=== PATIENT | male | born 1970 | race African-American/Black ===

== ENCOUNTER 2018-04-09 13:48 | Inpatient (IN) | payer BC ==
--- NOTE | 2018-04-09 14:17 | ER Document Report ---
ED Medical Screen (RME) - General Chief Complaint: Inability to Void Stated Complaint: URINATION ISSUES Time Seen by Provider: 04/09/18 14:11 Notes: Patient says that he has not passed any urine in 4 days. Has never had this happen before. Feels as if his bladder is distended. Patient also is complaining of pain and swelling in the anal area and he thinks he has a hemorrhoid. Has not seen any bleeding. This is been going on for 4 days as well. Patient has a history of hypertension but no other medical problems. TRAVEL OUTSIDE OF THE [place] IN LAST 30 DAYS: No - Related Data Allergies/Adverse Reactions: No Known Allergies Allergy (Unverified 04/09/18 13:51) Home Medications: losartan. metoprolol. amlodipine. clonidine Past Medical History - Social History Chew tobacco use (# tins/day): No Frequency of alcohol use: None Drug Abuse: None - Past Medical History Cardiac Medical History: Reports: Hx Hypertension Renal/ Medical History: Denies: Hx Peritoneal Dialysis Physical Exam - Vital signs Vitals: Temp Pulse Resp BP Pulse Ox 98.5 F 117 H 18 99/64 L 96 04/09/18 13:55 04/09/18 13:55 04/09/18 13:55 04/09/18 13:55 04/09/18 13:55 Course - Vital Signs Vital signs: Temp Pulse Resp BP Pulse Ox 98.5 F 117 H 18 99/64 L 96 04/09/18 13:55 04/09/18 13:55 04/09/18 13:55 04/09/18 13:55 04/09/18 13:55 Doctor's Discharge - Discharge Referrals: LOCAL,NO [Primary Care Provider] - Follow up as needed
[2018-04-09 14:37] LABS: ABSOLUTE BASOPHILS # (AUTO) 0.1 10^3/uL (0.0-0.2); ABSOLUTE MONOCYTES (AUTO) 1.3 10^3/uL (0.1-1.4); BASOPHILS % (AUTO) 0.3 % (0-2); HEMATOCRIT 39.3 % (37.9-51.0); HEMOGLOBIN 13.9 g/dL (13.5-17.0); LYMPHOCYTES % (AUTO) 5.9 % (13-45); MEAN CORPUSCULAR HEMOGLOBIN 32.8 pg (27.0-33.4); MEAN CORPUSCULAR HGB CONC 35.5 g/dL (32.0-36.0); MEAN CORPUSCULAR VOLUME 92 fl (80-97); MONOCYTES % (AUTO) 7.8 % (3-13); PLATELET COUNT 211 10^3/uL (150-450); RED BLOOD COUNT 4.26 10^6/uL (4.35-5.55); RED CELL DISTRIBUTION WIDTH 13.9 % (11.5-14.0); TOTAL CELLS COUNTED % (AUTO) 100 %; WHITE BLOOD COUNT 16.3 10^3/uL (4.0-10.5)
[2018-04-09 14:51] LABS: ALANINE AMINOTRANSFERASE 26 U/L (21-72); ALBUMIN 4.3 g/dL (3.5-5.0); ALKALINE PHOSPHATASE 87 U/L (38-126); ASPARTATE AMINO TRANSFERASE 29 U/L (17-59); BILIRUBIN,DIRECT 0.5 mg/dL (0.0-0.4); BILIRUBIN,TOTAL 0.9 mg/dL (0.2-1.3); BLOOD UREA NITROGEN 64 mg/dL (7-20); CALCIUM 9.7 mg/dL (8.4-10.2); CHLORIDE 88 mmol/L (98-107); GLUCOSE 117 mg/dL (75-110); POTASSIUM 3.5 mmol/L (3.6-5.0); TOTAL PROTEIN 7.8 g/dL (6.3-8.2)
[2018-04-09 14:56] LABS: CARBON DIOXIDE 21 mmol/L (22-30)
[2018-04-09 14:57] LABS: ANION GAP 23 (5-19)
[2018-04-09 15:21] LABS: APPEARANCE,URINE SLIGHTLY-CLOUDY; BILIRUBIN,URINE NEGATIVE (NEGATIVE); GLUCOSE, URINE NEGATIVE (NEGATIVE); KETONES,URINE NEGATIVE (NEGATIVE); LEUKOCYTE ESTERASE,URINE NEGATIVE (NEGATIVE); NITRITE,URINE NEGATIVE (NEGATIVE); PROTEIN,URINE 30 mg/dL (NEGATIVE); URINE SPECIFIC GRAVITY 1.021; UROBILINOGEN,URINE NEGATIVE mg/dL (<2.0)
[2018-04-09 15:23] LABS: COLOR,URINE YELLOW
[2018-04-09] MEDS ORDERED: NORMAL SALINE 1000 ML 1,000 ML IV ONE ×2 (15:37→15:38)
--- NOTE | 2018-04-09 15:51 | ER Document Report ---
ED General - General Chief Complaint: Inability to Void Stated Complaint: URINATION ISSUES Time Seen by Provider: 04/09/18 14:11 Mode of Arrival: Ambulatory Information source: Patient, [facility] Records Notes: 47-year-old male with hypertension presents with complaint of inability to urinate, lower abdominal pain that started 4 days prior to arrival. Patient denies any new medications, drug use, prior similar symptoms. He denies fever, chills, nausea, vomiting, chest pain, shortness of breath. He does complain of rectal pain which she describes as pressure and his abdominal pain is described as fullness. Patient's last bowel movement was also 4 days prior to arrival. TRAVEL OUTSIDE OF THE [place] IN LAST 30 DAYS: No - HPI Onset: Other Onset/Duration: Gradual, Persistent, Worse Quality of pain: Cramping, Pressure Severity: Mild Associated symptoms: denies: Chest pain, Diarrhea, Fever, Nausea, Vomiting, Shortness of breath Exacerbated by: Denies Relieved by: Denies Similar symptoms previously: No Recently seen / treated by doctor: No - Related Data Allergies/Adverse Reactions: No Known Allergies Allergy (Verified 04/09/18 15:14) Home Medications: losartan. metoprolol. amlodipine. clonidine Past Medical History - General Information source: Patient - Social History Smoking Status: Never Smoker Chew tobacco use (# tins/day): No Frequency of alcohol use: None Drug Abuse: None Lives with: Family Family History: Reviewed & Not Pertinent Patient has suicidal ideation: No Patient has homicidal ideation: No - Past Medical History Cardiac Medical History: Reports: Hx Hypertension Renal/ Medical History: Denies: Hx Peritoneal Dialysis Review of Systems - Review of Systems Notes: REVIEW OF SYSTEMS: CONSTITUTIONAL : Denies fever, chills, or sweats. Denies recent illness. Denies weight loss, recent hospitalizations. EENT: Denies visual changes, eye pain. Denies sore throat, oral lesions, difficulty swallowing. CARDIOVASCULAR: Denies chest pain. Denies palpitations. Denies lower extremity edema. RESPIRATORY: Denies cough. Denies shortness of breath, wheezing. GASTROINTESTINAL: Denies abdominal distention. Denies nausea, vomiting, or diarrhea. Denies blood in vomitus, stools, or per rectum. Denies black, tarry stools. GENITOURINARY: Denies painful urination, frequency, blood in urine, testicular pain or penile discharge. MUSCULOSKELETAL: Denies back or neck pain or stiffness. Denies joint pain or swelling. SKIN: Denies rash, lesions or sores. HEMATOLOGIC : Denies easy bruising or bleeding. LYMPHATIC: Denies swollen glands. NEUROLOGICAL: Denies confusion or altered mental status. Denies loss of consciousness. Denies dizziness or lightheadedness. Denies headache. Denies weakness or paralysis. Denies problems difficulty with ambulation, slurred speech. Denies sensory loss, numbness, or tingling. Denies seizures. PSYCHIATRIC: Denies anxiety or stress. Denies depression, suicidal ideation, or Physical Exam - Vital signs Vitals: Temp Pulse Resp BP Pulse Ox 98.5 F 117 H 18 99/64 L 96 04/09/18 13:55 04/09/18 13:55 04/09/18 13:55 04/09/18 13:55 04/09/18 13:55 - Notes Notes: PHYSICAL EXAMINATION: GENERAL: Well-appearing, well-nourished and in no acute distress. HEAD: Atraumatic, normocephalic. EYES: Pupils equal round and reactive to light, extraocular movements intact, sclera anicteric, conjunctiva are normal. ENT: Nares patent, oropharynx clear without exudates. Moist mucous membranes. NECK: Normal range of motion, supple without lymphadenopathy LUNGS: Breath sounds clear to auscultation bilaterally and equal. No wheezes rales or rhonchi. HEART: Regular rate and rhythm without murmurs ABDOMEN: Mild tenderness with palpation to the lower abdomen and right lower quadrant as well as the left lower quadrant. no guarding, no rebound. No masses appreciated. Rectal: No gross blood, no masses appreciated. Prostate firm. Musculoskeletal: Normal range of motion, no pitting or edema. No cyanosis. NEUROLOGICAL: Cranial nerves grossly intact. Normal speech, normal gait. Normal sensory, motor exams PSYCH: Normal mood, normal affect. SKIN: Warm, Dry, normal turgor, no rashes or lesions noted. Course - Re-evaluation Re-evalutation: Laboratory 04/09/18 04/09/18 04/09/18 14:25 14:25 14:25 WBC 16.3 H RBC 4.26 L Hgb 13.9 Hct 39.3 MCV 92 MCH 32.8 MCHC 35.5 RDW 13.9 Plt Count 211 Seg Neutrophils % 86.0 H Lymphocytes % 5.9 L Monocytes % 7.8 Eosinophils % 0.0 Basophils % 0.3 Absolute Neutrophils 14.0 H Absolute Lymphocytes 1.0 Absolute Monocytes 1.3 Absolute Eosinophils 0.0 Absolute Basophils 0.1 PT INR APTT Sodium 132.0 L Potassium 3.5 L Chloride 88 L Carbon Dioxide 21 L Anion Gap 23 H BUN 64 H Creatinine 9.93 H Est GFR ( Amer) 7 L Est GFR (Non-Af Amer) 6 L Glucose 117 H Calcium 9.7 Total Bilirubin 0.9 Direct Bilirubin 0.5 H Neonat Total Bilirubin Not Reportable Neonat Direct Bilirubin Not Reportable Neonat Indirect Bili Not Reportable AST 29 ALT 26 Alkaline Phosphatase 87 Creatine Kinase 180 H Total Protein 7.8 Albumin 4.3 Urine Color Urine Appearance Urine pH Ur Specific [place] Urine Protein Urine Glucose (UA) Urine Ketones Urine Blood Urine Nitrite Urine Bilirubin Urine Urobilinogen Ur Leukocyte Esterase Urine WBC (Auto) Urine RBC (Auto) U Hyaline Cast (Auto) Urine Bacteria (Auto) Squamous Epi Cells Auto Urine Mucus (Auto) Urine Ascorbic Acid Salicylates < 1.0 L Urine Opiates Screen Urine Methadone Screen Acetaminophen < 10 L Ur Barbiturates Screen Ur Phencyclidine Scrn Ur Amphetamines Screen U Benzodiazepines Scrn Urine Cocaine Screen U Marijuana (THC) Screen Serum Alcohol < 10 04/09/18 04/09/18 04/09/18 14:25 15:09 15:09 WBC RBC Hgb Hct MCV MCH MCHC RDW Plt Count Seg Neutrophils % Lymphocytes % Monocytes % Eosinophils % Basophils % Absolute Neutrophils Absolute Lymphocytes Absolute Monocytes Absolute Eosinophils Absolute Basophils PT 14.7 INR 1.09 APTT 40.4 H Sodium Potassium Chloride Carbon Dioxide Anion Gap BUN Creatinine Est GFR ( Amer) Est GFR (Non-Af Amer) Glucose Calcium Total Bilirubin Direct Bilirubin Neonat Total Bilirubin Neonat Direct Bilirubin Neonat Indirect Bili AST ALT Alkaline Phosphatase Creatine Kinase Total Protein Albumin Urine Color YELLOW Urine Appearance SLIGHTLY-CLOUDY Urine pH 5.0 Ur Specific [place] 1.021 Urine Protein 30 H Urine Glucose (UA) NEGATIVE Urine Ketones NEGATIVE Urine Blood NEGATIVE Urine Nitrite NEGATIVE Urine Bilirubin NEGATIVE Urine Urobilinogen NEGATIVE Ur Leukocyte Esterase NEGATIVE Urine WBC (Auto) 3 Urine RBC (Auto) 0 U Hyaline Cast (Auto) 1 Urine Bacteria (Auto) TRACE Squamous Epi Cells Auto <1 Urine Mucus (Auto) OCC Urine Ascorbic Acid NEGATIVE Salicylates Urine Opiates Screen NEGATIVE Urine Methadone Screen NEGATIVE Acetaminophen Ur Barbiturates Screen NEGATIVE Ur Phencyclidine Scrn NEGATIVE Ur Amphetamines Screen NEGATIVE U Benzodiazepines Scrn NEGATIVE Urine Cocaine Screen NEGATIVE U Marijuana (THC) Screen NEGATIVE Serum Alcohol Abdomen/Pelvis CT 04/09/18 15:48 IMPRESSION: Right lower quadrant/pelvic abscess, either from perforated appendix or diverticulitis. Surgical consultation is recommended. Renal Ultrasound 04/09/18 15:49 IMPRESSION: 1. Normal kidneys. 2. Inflammatory mass in the pelvis as initially seen on CT. Temp Pulse Resp BP Pulse Ox 98.7 F 99 16 97/54 L 96 04/09/18 23:20 04/09/18 23:20 04/09/18 23:20 04/09/18 23:20 04/09/18 23:20 47-year-old male presents with lower abdominal pain, urinary retention. Vital signs stable upon arrival. Patient does not appear toxic or dehydrated. He is in no acute distress. Abdominal exam is significant for mild lower tenderness but without evidence of peritonitis. Rectal exam was performed to assess prostate size and this was firm but not markedly enlarged. White was placed and 500 cc of urinary output was recorded. Patient's urine is bloody, dark in color. CBC does show a leukocytosis. CMP shows acute renal failure with a creatinine of 9 which is new for the patient. 04/09/18 16:20 Got a call from the radiologist who suspects a ruptured appendix with an associated abscess on patient's Noncon CAT scan of the abdomen and pelvis. Spoke to Dr. Pittman who will evaluate the patient. Awaiting callback from nephrology Dr. Davenport for patient's acute renal failure. 04/09/18 16:[address] Davenport regarding the patient's new onset renal failure and need for antibiotics. He recommends Zosyn with a loading dose of 3.375. Dr. Davenport does agree to consult on the patient in case he does require emergent dialysis tomorrow. 04/10/18 02:33 Patient was evaluated by surgery. They will continue to monitor the patient at this point he does not feel that immediate surgery is safe for the patient. I did speak to the hospitalist who has agreed to accept the patient. 04/10/18 02:37 - Vital Signs Vital signs: Temp Pulse Resp BP Pulse Ox 98.7 F 99 16 97/54 L 96 04/09/18 23:20 04/09/18 23:20 04/09/18 23:20 04/09/18 23:20 04/09/18 23:20 - Laboratory Result Diagrams: 04/09/18 14:25 04/09/18 17:29 Laboratory results interpreted by me: 04/09/18 04/09/18 04/09/18 14:25 14:25 14:25 WBC 16.3 H RBC 4.26 L Seg Neutrophils % 86.0 H Lymphocytes % 5.9 L Absolute Neutrophils 14.0 H APTT Sodium 132.0 L Potassium 3.5 L Chloride 88 L Carbon Dioxide 21 L Anion Gap 23 H BUN 64 H Creatinine 9.93 H Est GFR ( Amer) 7 L Est GFR (Non-Af Amer) 6 L Glucose 117 H Direct Bilirubin 0.5 H Creatine Kinase 180 H Urine Protein Salicylates < 1.0 L Acetaminophen < 10 L 04/09/18 04/09/18 14:25 15:09 WBC RBC Seg Neutrophils % Lymphocytes % Absolute Neutrophils APTT 40.4 H Sodium Potassium Chloride Carbon Dioxide Anion Gap BUN Creatinine Est GFR ( Amer) Est GFR (Non-Af Amer) Glucose Direct Bilirubin Creatine Kinase Urine Protein 30 H Salicylates Acetaminophen - Diagnostic Test Radiology reviewed: Image reviewed, Reports reviewed Critical Care Note - Critical Care Note Total time excluding time spent on procedures (mins): 35 - Minutes of critical care time spent in direct contact evaluating and reevaluating the patient, treating symptoms, reviewing labs and studies and speaking with family and consultants excluding any procedures Discharge - Discharge Clinical Impression: Pelvic abscess, Pneumaturia, Urinary retention Acute renal failure Qualifiers: Acute renal failure type: unspecified Qualified Code(s): N17.9 - Acute kidney failure, unspecified Leukocytosis Qualifiers: Leukocytosis type: unspecified Qualified Code(s): D72.829 - Elevated white blood cell count, unspecified Condition: Good Disposition: ADMITTED INPATIENT Admitting Provider: Hospitalist Unit Admitted: Telemetry
[2018-04-09 16:03] LABS: CREATINE KINASE 180 U/L (55-170)
[2018-04-09 16:05] LABS: ACETAMINOPHEN < 10 ug/mL (10-30); ALCOHOL < 10 mg/dL (NONE DETECTED); SALICYLATE < 1.0 mg/dL (2.0-20.0)
--- NOTE | 2018-04-09 16:13 | RADIOLOGY REPORT (SQ) ---
EXAM DESCRIPTION: CT ABD/PELVIS NO ORAL OR IV COMPLETED DATE/TIME: 04/09/2018 3:59 pm REASON FOR STUDY: Abd pain, urinary retention, acute renal fail COMPARISON: None. TECHNIQUE: CT scan of the abdomen and pelvis performed without intravenous or oral contrast. Images reviewed with lung, soft tissue, and bone windows. Reconstructed coronal and sagittal MPR images revi ewed. All images stored on PACS. All CT scanners at this facility use dose modulation, iterative reconstruction, and/or weight based d osing when appropriate to reduce radiation dose to as low as reasonably achievable (ALARA). [facility]: Dose Right [facility]: CareDose [facility]: Dose Right [facility]: Teradose 4D [facility]: [employer] RADIATION DOSE: CT Rad equipment meets quality standard of care and radiation dose reduction techniq ues were employed. CTDIvol: 10.0 mGy. DLP: 583 mGy-cm.mGy. LIMITATIONS: None. FINDINGS: LOWER CHEST: No significant findings. No nodules or infiltrates. NON-CONTRASTED LIVER, SPLEEN, ADRENALS: Evaluation limited by lack of IV contrast. No identified sign ificant masses. PANCREAS: No masses. No peripancreatic inflammatory changes. GALLBLADDER: No identified stones by CT criteria. No inflammatory changes to suggest cholecystitis. RIGHT KIDNEY AND URETER: No suspicious masses. Assessment limited by lack of IV contrast. 3.[address] with dependent calcifications upper pole. No urinary tract stones. No hydronephrosis or hydrour eter. LEFT KIDNEY AND URETER: No suspicious masses. Assessment limited by lack of IV contrast. No signifi cant calcifications. No hydronephrosis or hydroureter. AORTA AND RETROPERITONEUM: No aneurysm. No retroperitoneal masses or adenopathy. BOWEL AND PERITONEAL CAVITY: Mesenteric inflammation in the pelvis with suspected midline gas fluid c ollection measuring 6 cm in maximum diameter. There is a smaller fluid collection to the right of th e larger fluid collection which may be connected. Evaluation is limited due to lack of oral contrast . No ascites or free air. APPENDIX: Not identified. There is inflammation in the expected location of the appendix. PELVIS, BLADDER, AND ABDOMINAL WALL:See above. White catheter in urinary bladder. BONES: Nothing acute. OTHER: No other significant finding. IMPRESSION: Right lower quadrant/pelvic abscess, either from perforated appendix or diverticulitis. Surgical consultation is recommended. COMMENT: Quality ID # [id number]: Final reports with documentation of one or more dose reduction techniques (e.g., Automated exposure control, adjustment of the mA and/or kV according to patient size, use of iterative reconstruction technique) TECHNICAL DOCUMENTATION: JOB ID: [id number] [employer]- All Rights Reserved Reading location - IP/workstation name: [email or web address]
[2018-04-09 16:31] LABS: INTERNATIONAL RATION (INR) 1.09; PROTHROMBIN TIME 14.7 SEC (11.4-15.4)
[2018-04-09 16:32] LABS: PARTIAL THROMBOPLASTIN TIME 40.4 SEC (23.5-35.8)
[2018-04-09 16:33] LABS: URINE AMPHETAMINES SCREEN NEGATIVE; URINE BARBITURATES SCREEN NEGATIVE; URINE BENZODIAZEPINES SCREEN NEGATIVE; URINE COCAINE SCREEN NEGATIVE; URINE MARIJUANA (THC) SCREEN NEGATIVE; URINE METHADONE SCREEN NEGATIVE; URINE PHENCYCLIDINE SCREEN NEGATIVE
[2018-04-09] MEDS ORDERED: PIPERACILLIN/TAZOBACTAM 3.375 GM VIAL IV ONE (16:43)
--- NOTE | 2018-04-09 17:17 | RADIOLOGY REPORT (SQ) ---
EXAM DESCRIPTION: U/S RETROPERITON (RENAL/AORTA) COMPLETED DATE/TIME: 04/09/2018 5:06 pm REASON FOR STUDY: Acute renal failure inability to urinate COMPARISON: CT 04/09/2018 TECHNIQUE: Dynamic and static grayscale images acquired of the kidneys and bladder and recorded on P ACS. Additional selected color Doppler and spectral images recorded. LIMITATIONS: None. FINDINGS: RIGHT KIDNEY: Normal size, 11.1 cm. Normal echogenicity. No solid or suspicious masses. 3 .6 cm cyst. No hydronephrosis. No calcifications. LEFT KIDNEY: Normal size, 10.1 cm. Normal echogenicity. No solid or suspicious masses. No hydronephr osis. No calcifications. BLADDER: There is a White catheter in the bladder. The bladder is not distended. OTHER FINDINGS: There is a complex area in the pelvis measuring 9.2 x 5.6 x 5.1 cm. Likely abscess/p hlegmon. IMPRESSION: 1. Normal kidneys. 2. Inflammatory mass in the pelvis as initially seen on CT. TECHNICAL DOCUMENTATION: JOB ID: [id number]- All Rights Reserved Reading location - IP/workstation name: [email or web address]
[2018-04-09] MEDS ORDERED: ONDANSETRON HCL INJ/PF 4 MG/2 ML SDV IV PRN (17:26)
--- NOTE | 2018-04-09 17:32 | PDOC CONSULTATION ---
Consultation Consult Date: 04/09/18 Attending physician:: MACHELLE BHAT Consult reason:: Abdominal pain History of Present Illness Admission Date/PCP: 04/09/18 17:15 Patient complains of: Abdominal pain History of Present Illness: CAITIE PICKARD JR is a 47 year old male Who presents to the emergency department via ground rescue complaining of a 4-1/2-day history of lower abdominal pain, inability to void, fever and chills although he never took his temperature. Patient reports he was doing fine until Friday when he did not feel he could void completely. He reports multiple episodes of pneumaturia. He had to lean over to void. He also felt like he had to have a bowel movement but could not. His last bowel movement close to 4 days ago as well. Patient has not voided in 4 days. He is simply not work and laid back and this made him feel better. In the emergency department he was found to have tachycardia, sagging blood pressure and diffuse abdominal tenderness and had a CT scan performed without oral or IV contrast which revealed a pelvic phlegmon of unclear etiology. There appeared to be air either in the bladder or just above it. His creatinine was in excess of 9. A White catheter was inserted and dark urine returned. The patient felt better, and arrangements were made for him to be admitted to the service with nephrology and surgery cons ulting. Past Medical History Cardiac Medical History: Reports: Hypertension Past Surgical History Past Surgical History: Reports: None Social History Smoking Status: Never Smoker Frequency of Alcohol Use: None Hx Recreational Drug Use: No Family History Parental Family History Reviewed: Yes Children Family History Reviewed: Yes Sibling(s) Family History Reviewed.: Yes Medication/Allergy Home Medications: Unobtainable 04/09/18 Allergies/Adverse Reactions: No Known Allergies Allergy (Verified 04/09/18 15:14) Review of Systems Constitutional: PRESENT: as per HPI Eyes: ABSENT: visual disturbances Ears: ABSENT: hearing changes Respiratory: ABSENT: cough, hemoptysis Gastrointestinal: PRESENT: other - Denies having had gastrointestinal problems or colonoscopy Genitourinary: PRESENT: as per HPI, other Musculoskeletal: ABSENT: joint swelling Neurological: ABSENT: abnormal gait, abnormal speech, confusion, dizziness, focal weakness, syncope Physical Exam Vital Signs: Temp Pulse Resp BP Pulse Ox 98.5 F 117 H 18 99/64 L 96 04/09/18 13:55 04/09/18 13:55 04/09/18 13:55 04/09/18 13:55 04/09/18 13:55 Intake & Output 04/08/18 04/09/18 04/10/18 06:59 06:59 06:59 Intake Total 1000 Balance 1000 Weight 90.5 kg General appearance: PRESENT: no acute distress Head exam: PRESENT: normocephalic Eye exam: PRESENT: EOMI Mouth exam: PRESENT: dry mucosa Neck exam: PRESENT: full ROM Respiratory exam: PRESENT: clear to auscultation dorian Cardiovascular exam: PRESENT: RRR Pulses: PRESENT: normal carotid pulses, normal radial pulses, normal femoral pulses GI/Abdominal exam: PRESENT: other - Abdominal tenderness in the pelvic region. Some guarding but no rigidity. No umbilical or groin hernias. Rectal exam: PRESENT: other - Rectal exam performed by emergency department staff, no palpable masses Extremities exam: PRESENT: full ROM Musculoskeletal exam: PRESENT: full ROM Neurological exam: PRESENT: alert, awake, oriented to person, oriented to place Psychiatric exam: PRESENT: appropriate affect Results Laboratory Results: 04/09/18 14:25 04/09/18 14:25 04/09/18 04/09/18 04/09/18 14:25 14:25 15:09 WBC 16.3 H RBC 4.26 L Hgb 13.9 Hct 39.3 MCV 92 MCH 32.8 MCHC 35.5 RDW 13.9 Plt Count 211 Seg Neutrophils % 86.0 H Lymphocytes % 5.9 L Monocytes % 7.8 Eosinophils % 0.0 Basophils % 0.3 Absolute Neutrophils 14.0 H Absolute Lymphocytes 1.0 Absolute Monocytes 1.3 Absolute Eosinophils 0.0 Absolute Basophils 0.1 Sodium 132.0 L Potassium 3.5 L Chloride 88 L Carbon Dioxide 21 L Anion Gap 23 H BUN 64 H Creatinine 9.93 H Est GFR ( Amer) 7 L Est GFR (Non-Af Amer) 6 L Glucose 117 H Calcium 9.7 Total Bilirubin 0.9 AST 29 ALT 26 Alkaline Phosphatase 87 Total Protein 7.8 Albumin 4.3 Urine Color YELLOW Urine Appearance SLIGHTLY-CLOUDY Urine pH 5.0 Ur Specific [place] 1.021 Urine Protein 30 H Urine Glucose (UA) NEGATIVE Urine Ketones NEGATIVE Urine Blood NEGATIVE Urine Nitrite NEGATIVE Ur Leukocyte Esterase NEGATIVE Urine WBC (Auto) 3 Urine RBC (Auto) 0 04/09/18 14:25 Creatine Kinase 180 H Impressions: Abdomen/Pelvis CT 04/09/18 15:48 IMPRESSION: Right lower quadrant/pelvic abscess, either from perforated appendix or diverticulitis. Surgical consultation is recommended. Renal Ultrasound 04/09/18 15:49 IMPRESSION: 1. Normal kidneys. 2. Inflammatory mass in the pelvis as initially seen on CT. Assessment & Plan - Diagnosis (1) Pelvic abscess Is this a current diagnosis for this admission?: Yes Plan: Impression: Acute sepsis due to pelvic infection of unclear etiology; CT scan limited due to absence of oral and IV contrast. 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 Patient is in acute renal failure due to a combination of urinary retention, and dehydration. There is no clinical indication for surgical intervention tonight. Recommendations: 1. Discussed current impression with hospitalist and patient. Unfortunately due to absence of oral and asked, because of acute renal failure, the resolution of the CT scan is poor. 2. Nonetheless management including IV fluids, intravenous antibiotic, urinary drainage have been started. We will follow the patient clinically and as the renal failure grooves, recommend additional imaging such as rectal contrast CT scan, possible urogram to better define the pathoanatomy Conversely patient may have complicated appendicitis however the clinical history, and symptom manifestation are inconsistent with that diagnosis. (2) Sepsis Is this a current diagnosis for this admission?: Yes (3) Pneumaturia Is this a current diagnosis for this admission?: Yes - Time Time Spent: 50 to 70 Minutes Smoking Cessation Education: over 10 minutes
--- NOTE | 2018-04-09 17:48 | PDOC H&P ---
History of Present Illness Admission Date/PCP: 04/09/18 17:15 History of Present Illness: CAITIE PICKARD JR is a 47 year old male with a past medical history of hypertension who said he had been feeling bad like he had had an upset stomach for a few days and said early Friday morning he tried to urinate but could not. He said he may or may not have felt like he had some air sputtering out while he had been urinating previous to that. He says he felt like he had run a fever in the days preceding but he did not take his temperature. He said that he would lay down and hope that the burning sensation that he felt like was near his rectum would just go away on his own if he would lay down and rest. He is not had any new medicines or medical tests or procedures. He has been able to ambulate independently. He said he has not urinated now in about 3 or 4 days, nor has he had a bowel movement in that time. He had a CT scan for his abdominal pain, but they could not use contrast because they found his creatinine was greater than 9, which was new for him. The noncontrasted CT showed something that looked like a phlegmon in his lower abdomen his appendix could not be identified. Hospitalist service was consulted for evaluation and further management. Past Medical History Cardiac Medical History: Reports: Hypertension Past Surgical History Past Surgical History: Reports: None Social History Smoking Status: Never Smoker Frequency of Alcohol Use: None Hx Recreational Drug Use: No Family History Family History: Reviewed & Not Pertinent Parental Family History Reviewed: Yes - Noncontributory Children Family History Reviewed: Yes - Noncontributory Sibling(s) Family History Reviewed.: Yes - Noncontributory Medication/Allergy Home Medications: Unobtainable 04/09/18 Allergies/Adverse Reactions: No Known Allergies Allergy (Verified 04/09/18 15:14) Review of Systems All systems: reviewed and no additional remarkable complaints except as stated - 10 point review of systems was conducted with the patient and was negative except as noted above Physical Exam Vital Signs: Temp Pulse Resp BP Pulse Ox 98.5 F 117 H 18 99/64 L 96 04/09/18 13:55 04/09/18 13:55 04/09/18 13:55 04/09/18 13:55 04/09/18 13:55 Intake & Output 04/08/18 04/09/18 04/10/18 06:59 06:59 06:59 Intake Total 1999 Balance 2000 Weight 90.5 kg General appearance: PRESENT: no acute distress, cooperative Head exam: PRESENT: atraumatic, normocephalic Eye exam: PRESENT: EOMI, PERRLA. ABSENT: conjunctival injection, nystagmus, scleral icterus Ear exam: PRESENT: normal external ear exam Mouth exam: PRESENT: dry mucosa, neck supple Throat exam: ABSENT: post pharyngeal erythema Neck exam: PRESENT: full ROM. ABSENT: carotid bruit, JVD, lymphadenopathy, meningismus, tenderness, thyromegaly Respiratory exam: PRESENT: clear to auscultation dorian, symmetrical, unlabored. ABSENT: accessory muscle use, crackles, rhonchi, tachypnea, wheezes Cardiovascular exam: PRESENT: tachycardia Vascular exam: PRESENT: normal capillary refill GI/Abdominal exam: PRESENT: diminished bowel sounds, soft, tenderness - Right lower quadrant. ABSENT: distended, firm, guarding, rebound, rigid Rectal exam: PRESENT: other - Performed by the ER provider, unremarkable by report Gentrourinary exam: ABSENT: scrotal swelling, urethral discharge Extremities exam: ABSENT: clubbing, pedal edema Musculoskeletal exam: PRESENT: ambulatory, normal inspection. ABSENT: deformity Neurological exam: PRESENT: alert, awake, oriented to person, oriented to place, oriented to time, oriented to situation, CN II-XII grossly intact, normal gait. ABSENT: motor sensory deficit Psychiatric exam: PRESENT: appropriate affect, normal mood Skin exam: PRESENT: dry, warm Results Laboratory Results: 04/09/18 14:25 04/09/18 14:25 04/09/18 04/09/18 04/09/18 14:25 14:25 15:09 WBC 16.3 H RBC 4.26 L Hgb 13.9 Hct 39.3 MCV 92 MCH 32.8 MCHC 35.5 RDW 13.9 Plt Count 211 Seg Neutrophils % 86.0 H Lymphocytes % 5.9 L Monocytes % 7.8 Eosinophils % 0.0 Basophils % 0.3 Absolute Neutrophils 14.0 H Absolute Lymphocytes 1.0 Absolute Monocytes 1.3 Absolute Eosinophils 0.0 Absolute Basophils 0.1 Sodium 132.0 L Potassium 3.5 L Chloride 88 L Carbon Dioxide 21 L Anion Gap 23 H BUN 64 H Creatinine 9.93 H Est GFR ( Amer) 7 L Est GFR (Non-Af Amer) 6 L Glucose 117 H Calcium 9.7 Total Bilirubin 0.9 AST 29 ALT 26 Alkaline Phosphatase 87 Total Protein 7.8 Albumin 4.3 Urine Color YELLOW Urine Appearance SLIGHTLY-CLOUDY Urine pH 5.0 Ur Specific [place] 1.021 Urine Protein 30 H Urine Glucose (UA) NEGATIVE Urine Ketones NEGATIVE Urine Blood NEGATIVE Urine Nitrite NEGATIVE Ur Leukocyte Esterase NEGATIVE Urine WBC (Auto) 3 Urine RBC (Auto) 0 04/09/18 14:25 Creatine Kinase 180 H Impressions: Abdomen/Pelvis CT 04/09/18 15:48 IMPRESSION: Right lower quadrant/pelvic abscess, either from perforated appendix or diverticulitis. Surgical consultation is recommended. Renal Ultrasound 04/09/18 15:49 IMPRESSION: 1. Normal kidneys. 2. Inflammatory mass in the pelvis as initially seen on CT. Assessment & Plan - Diagnosis (1) Acute renal failure Qualifiers: Acute renal failure type: unspecified Qualified Code(s): N17.9 - Acute kidney failure, unspecified Plan: He definitely needs IV fluids which we will give. He also needs antibiotics for his infection which will also give. Nephrology has been consulted. Follow the trend in his creatinine. Watch his urine output closely. Monitor his electrolytes. Renal ultrasound is pending. (2) Pelvic abscess Is this a current diagnosis for this admission?: Yes Plan: General surgery has been consulted. (3) Sepsis Qualifiers: Sepsis type: sepsis due to unspecified organism Qualified Code(s): A41.9 - Sepsis, unspecified organism Is this a current diagnosis for this admission?: Yes Plan: We will start him empirically on Zosyn and give him copious IV fluid administration. We will monitor his urine output closely and will continue assess for signs of perfusion. - Time Time Spent: Greater than 70 Minutes - Inpatient Certification Medical Necessity: Need Close Monitoring Due to Risk of Patient Decompensation, Need For IV Fluids, Need For Continuous Telemetry Monitoring, Need for IV Antibiotics, Risk of Complication if Not Cared For in Hospital, Risk of Diagnosis Which Will Require Inpatient Eval/Care/Monitoring
[2018-04-09] MEDS: RINGERS SOLUTION,LACTATED 1,000 ML IV PRN (18:00)
[2018-04-09 18:16] LABS: BLOOD UREA NITROGEN 68 mg/dL (7-20); CALCIUM 9.2 mg/dL (8.4-10.2); GLUCOSE 107 mg/dL (75-110); POTASSIUM 3.8 mmol/L (3.6-5.0)
[2018-04-09 18:22] LABS: ANION GAP 20 (5-19); CARBON DIOXIDE 22 mmol/L (22-30); CHLORIDE 91 mmol/L (98-107); SODIUM 132.7 mmol/L (137-145)
[2018-04-09] MEDS: HEPARIN SOD (PORCINE) 5,000 UNIT/ML 1 ML SYRINGE SUBCUT SCH (22:35)
[2018-04-09] MEDS: PIPERACILLIN SODIUM/TAZOBACTAM 2.25 GM in NORMAL SALINE 50 ML IV SCH (22:36)
[2018-04-10] MEDS: MORPHINE SULFATE 10 MG/ML INJ IV PRN ×3 (00:07→08:47)
[2018-04-10] MEDS: RINGERS SOLUTION,LACTATED 1,000 ML IV PRN (04:40)
[2018-04-10] MEDS: PIPERACILLIN SODIUM/TAZOBACTAM 2.25 GM in NORMAL SALINE 50 ML IV SCH ×2 (06:32→15:02)
[2018-04-10] MEDS: HEPARIN SOD (PORCINE) 5,000 UNIT/ML 1 ML SYRINGE SUBCUT SCH ×2 (06:35→15:02)
[2018-04-10 06:36] LABS: MEAN CORPUSCULAR HEMOGLOBIN 32.2 pg (27.0-33.4); MEAN CORPUSCULAR HGB CONC 34.6 g/dL (32.0-36.0); MEAN CORPUSCULAR VOLUME 93 fl (80-97); PLATELET COUNT 166 10^3/uL (150-450); RED BLOOD COUNT 3.66 10^6/uL (4.35-5.55); RED CELL DISTRIBUTION WIDTH 13.9 % (11.5-14.0); WHITE BLOOD COUNT 11.3 10^3/uL (4.0-10.5)
[2018-04-10 06:38] LABS: HEMOGLOBIN 11.8 g/dL (13.5-17.0)
[2018-04-10 07:09] LABS: ANION GAP 17 (5-19); BLOOD UREA NITROGEN 75 mg/dL (7-20); CALCIUM 8.5 mg/dL (8.4-10.2); CARBON DIOXIDE 17 mmol/L (22-30); CHLORIDE 95 mmol/L (98-107); GLUCOSE 104 mg/dL (75-110); POTASSIUM 3.4 mmol/L (3.6-5.0); SODIUM 129.1 mmol/L (137-145)
[2018-04-10] MEDS ORDERED: GLUCAGON,HUMAN RECOMB 1 MG INJ SUBCUT PRN (09:52)
[2018-04-10] MEDS ORDERED: DEXTROSE 40% GEL 15 GM TUBE PO PRN ×2 (09:52)
[2018-04-10] MEDS ORDERED: DEXTROSE 50%-WATER 25 GM/50 ML DISP.SYRIN IV PRN ×2 (09:52)
--- NOTE | 2018-04-10 10:28 | PDOC PROGRESS REPORT ---
Subjective Progress Note for:: 04/10/18 Subjective:: pelvic/rectal pains Reason For Visit: SEPSIS,INTRAABDOMINAL INFECTION, ACUTE KIDNEY Physical Exam Vital Signs: Temp Pulse Resp BP Pulse Ox 98.3 F 97 17 110/60 98 04/10/18 07:35 04/10/18 07:35 04/10/18 07:35 04/10/18 07:35 04/10/18 07:35 Intake & Output 04/09/18 04/10/18 04/11/18 06:59 06:59 06:59 Intake Total 5150 50 Output Total 230 Balance 4920 50 Weight 90.5 kg Exam: abdomen is soft and tender suprapubic,LLQ and mildly RLQ Results Laboratory Results: 04/10/18 06:01 04/10/18 06:01 04/09/18 04/09/18 04/09/18 14:25 14:25 15:09 WBC 16.3 H RBC 4.26 L Hgb 13.9 Hct 39.3 MCV 92 MCH 32.8 MCHC 35.5 RDW 13.9 Plt Count 211 Seg Neutrophils % 86.0 H Lymphocytes % 5.9 L Monocytes % 7.8 Eosinophils % 0.0 Basophils % 0.3 Absolute Neutrophils 14.0 H Absolute Lymphocytes 1.0 Absolute Monocytes 1.3 Absolute Eosinophils 0.0 Absolute Basophils 0.1 Sodium 132.0 L Potassium 3.5 L Chloride 88 L Carbon Dioxide 21 L Anion Gap 23 H BUN 64 H Creatinine 9.93 H Est GFR ( Amer) 7 L Est GFR (Non-Af Amer) 6 L Glucose 117 H Calcium 9.7 Total Bilirubin 0.9 AST 29 ALT 26 Alkaline Phosphatase 87 Total Protein 7.8 Albumin 4.3 Urine Color YELLOW Urine Appearance SLIGHTLY-CLOUDY Urine pH 5.0 Ur Specific [place] 1.021 Urine Protein 30 H Urine Glucose (UA) NEGATIVE Urine Ketones NEGATIVE Urine Blood NEGATIVE Urine Nitrite NEGATIVE Ur Leukocyte Esterase NEGATIVE Urine WBC (Auto) 3 Urine RBC (Auto) 0 Blood Type Antibody Screen 04/09/18 04/09/18 04/10/18 17:29 17:29 06:01 WBC 11.3 H RBC 3.66 L Hgb 11.8 L D Hct 34.0 L MCV 93 MCH 32.2 MCHC 34.6 RDW 13.9 Plt Count 166 Seg Neutrophils % Lymphocytes % Monocytes % Eosinophils % Basophils % Absolute Neutrophils Absolute Lymphocytes Absolute Monocytes Absolute Eosinophils Absolute Basophils Sodium 132.7 L Potassium 3.8 Chloride 91 L Carbon Dioxide 22 Anion Gap 20 H BUN 68 H Creatinine 9.67 H Est GFR ( Amer) 7 L Est GFR (Non-Af Amer) 6 L Glucose 107 Calcium 9.2 Total Bilirubin AST ALT Alkaline Phosphatase Total Protein Albumin Urine Color Urine Appearance Urine pH Ur Specific [place] Urine Protein Urine Glucose (UA) Urine Ketones Urine Blood Urine Nitrite Ur Leukocyte Esterase Urine WBC (Auto) Urine RBC (Auto) Blood Type O NEGATIVE Antibody Screen NEGATIVE 04/10/18 06:01 WBC RBC Hgb Hct MCV MCH MCHC RDW Plt Count Seg Neutrophils % Lymphocytes % Monocytes % Eosinophils % Basophils % Absolute Neutrophils Absolute Lymphocytes Absolute Monocytes Absolute Eosinophils Absolute Basophils Sodium 129.1 L Potassium 3.4 L Chloride 95 L Carbon Dioxide 17 L Anion Gap 17 BUN 75 H Creatinine 9.48 H Est GFR ( Amer) 7 L Est GFR (Non-Af Amer) 6 L Glucose 104 Calcium 8.5 Total Bilirubin AST ALT Alkaline Phosphatase Total Protein Albumin Urine Color Urine Appearance Urine pH Ur Specific [place] Urine Protein Urine Glucose (UA) Urine Ketones Urine Blood Urine Nitrite Ur Leukocyte Esterase Urine WBC (Auto) Urine RBC (Auto) Blood Type Antibody Screen 04/09/18 14:25 Creatine Kinase 180 H Impressions: Abdomen/Pelvis CT 04/09/18 15:48 IMPRESSION: Right lower quadrant/pelvic abscess, either from perforated appendix or diverticulitis. Surgical consultation is recommended. Renal Ultrasound 04/09/18 15:49 IMPRESSION: 1. Normal kidneys. 2. Inflammatory mass in the pelvis as initially seen on CT. Assessment & Plan - Diagnosis (1) Acute renal failure Qualifiers: Acute renal failure type: unspecified Qualified Code(s): N17.9 - Acute kidney failure, unspecified Is this a current diagnosis for this admission?: Yes (2) Leukocytosis Qualifiers: Leukocytosis type: unspecified Qualified Code(s): D72.829 - Elevated white blood cell count, unspecified Is this a current diagnosis for this admission?: Yes (3) Pelvic abscess Is this a current diagnosis for this admission?: Yes (4) Pneumaturia Is this a current diagnosis for this admission?: Yes - Time Time Spent with patient: 25-34 minutes - Inpatient Certification Medical Necessity: Need For IV Fluids, Need for Pain Control, Need for IV Antibiotics, Need for Surgery - Plan Summary Plan Summary: Have just talked to Dr Rizo(radiology) about percutaneous drainage of pelvic abscess. Then Dr Rizo called me. He feels that drainage alone will not treat patient enough. He feels that patient nedds explore lap by Gen Surgery and Urol ogy since he feels there is a urological fistula. Pt's BUN/Creatinine remains elevated. Have called Dr Alarcon(Hospitalist) regarding transfer to a tertiary Hospital where they have a Urologist.
[2018-04-10] MEDS ORDERED: NORMAL SALINE 1000 ML 1,000 ML with POTASSIUM CHLORIDE 20 MEQ IV PRN ×2 (11:41)
[2018-04-10] MEDS ORDERED: POTASSI CL 20 MEQ/NS 1L 1000 ML IV PRN (11:48)
--- NOTE | 2018-04-10 11:55 | PDOC CONSULTATION ---
Consultation Consult Date: 04/10/18 Consult reason:: MARKY History of Present Illness Admission Date/PCP: 04/09/18 17:15 History of Present Illness: CAITIE PICKARD JR is a 47 year old male with a past medical history of hype rtension who said he had been feeling bad like he had had an upset stomach for a few days and said early Friday morning he tried to urinate but could not. He also wanted to move bowels but nothing came out. He then noticed some moderate pain developing in the lower abdomen and between his legs. He finds it hard to sit down as that makes the pain worse. The pain is least if he is either standing up or if he is laying flat. He says he does not recall even moving flatus until yesterday when he had a liquid stool as well as flatus. Does not recall having any fever or chills. He began taking ibuprofen 2 3 times daily since Friday for 3-4 days for the lower abdominal pains. He said he may or may not have felt like he had some air sputtering out while he had been urinating previous to that. He said he has not urinated now in about 3 or 4 days, nor has he had a bowel movement in that time. He has had a White catheter inserted in his bladder since he has been here and is making small amounts of urine. He had a Non contrasted CT scan for his abdominal pain, as his creatinine was greater than 9. The noncontrasted CT showed a 6 cm mass with air in the midline extending into the right iliac fossa suggestive of either an abscess or phlegmon in the background of appendicitis or diverticulitis. The kidneys were unremarkable both on the CT scan and ultrasound. There is no hydronephrosis. No repeat CT was done with any oral contrast.Since his admission he has been begun on IV Ringer lactate along with IV PIP tazo. His labs today shows creatinine still stable at 9+. His urine was bland. The pain in his lower abdomen is better than what it was Friday. He has no appetite. He has not eaten anything since last Friday but has been drinking fluids. Past Medical History Cardiac Medical History: Reports: Hypertension-primary Psychiatric Medical History: Denies: Depression Past Surgical History Past Surgical History: Reports: None Social History Lives with: Family Smoking Status: Never Smoker Number of Years Smokin Last Time Smoked: 2014 Frequency of Alcohol Use: Social Hx Recreational Drug Use: Yes Drugs: Marijuana Hx Prescription Drug Abuse: No - Advance Directive Resuscitation Status: Full Code Family History Parental Family History Reviewed: Yes - Negative for CKD or ESRD. He has got 2 uncles were diabetics with history Children Family History Reviewed: Yes Sibling(s) Family History Reviewed.: Yes Medication/Allergy Home Medications: Amlodipine Besylate [Norvasc 10 mg Tablet] 10 mg PO DAILY 04/09/18 Clonidine HCl [Catapres 0.1 mg Tablet] 0.1 mg PO Q12 04/09/18 Losartan/Hydrochlorothiazide [Losartan-Hctz 50-12.5 mg Tab] 1 each PO DAILY 04/09/18 Metoprolol Tartrate [Lopressor 100 mg Tablet] 100 mg PO Q12 04/09/18 Ranitidine HCl 300 mg PO DAILY 04/09/18 Allergies/Adverse Reactions: No Known Allergies Allergy (Verified 04/09/18 15:14) Review of Systems Constitutional: PRESENT: fatigue. ABSENT: anorexia, chills, fever(s), headache(s), night sweats Nose, Mouth, and Throat: ABSENT: mouth pain, sore throat Cardiovascular: ABSENT: chest pain, dyspnea on exertion, edema, orthropnea, palpitations Gastrointestinal: PRESENT: abdominal pain - Of the lower abdomen. ABSENT: diarrhea, dysphagia, heartburn, hematemesis, hematochezia, melena, nausea, vomiting Genitourinary: PRESENT: difficulty urinating. ABSENT: dysuria, hematuria Neurological: ABSENT: abnormal movements, confusion, convulsions, focal weakness Psychiatric: PRESENT: anxiety Hematologic/Lymphatic: ABSENT: easy bleeding, easy bruising, lymphadenopathy Physical Exam Vital Signs: Temp Pulse Resp BP Pulse Ox 98.3 F 97 17 110/60 98 04/10/18 07:35 04/10/18 07:35 04/10/18 07:35 04/10/18 07:35 04/10/18 07:35 Intake & Output 04/09/18 04/10/18 04/11/18 06:59 06:59 06:59 Intake Total 5150 50 Output Total 230 Balance 4920 50 Weight 90.5 kg General appearance: PRESENT: no acute distress Eye exam: PRESENT: conjunctival injection, EOMI, PERRLA. ABSENT: nystagmus Ear exam: PRESENT: normal external ear exam Mouth exam: PRESENT: neck supple. ABSENT: moist Neck exam: ABSENT: lymphadenopathy, meningismus, tenderness, thyromegaly, tracheal deviation Respiratory exam: PRESENT: clear to auscultation dorian. ABSENT: crackles, decreased breath sounds, wheezes Cardiovascular exam: PRESENT: +S1, +S2 GI/Abdominal exam: PRESENT: soft, tenderness - Mainly affecting the right iliac fossa with mild tenderness in the left iliac fossa as well. ABSENT: distended, firm, guarding, hypoactive bowel sounds, mass, normal bowel sounds, o rganomegaly, rebound Extremities exam: ABSENT: pedal edema Neurological exam: PRESENT: alert, awake, oriented to person, oriented to place, other - He had no asterixis. Psychiatric exam: PRESENT: anxious Skin exam: PRESENT: dry. ABSENT: erythema, mottled, rash Results Laboratory Results: 04/10/18 06:01 04/10/18 06:01 04/09/18 04/09/18 04/09/18 14:25 14:25 15:09 WBC 16.3 H RBC 4.26 L Hgb 13.9 Hct 39.3 MCV 92 MCH 32.8 MCHC 35.5 RDW 13.9 Plt Count 211 Seg Neutrophils % 86.0 H Lymphocytes % 5.9 L Monocytes % 7.8 Eosinophils % 0.0 Basophils % 0.3 Absolute Neutrophils 14.0 H Absolute Lymphocytes 1.0 Absolute Monocytes 1.3 Absolute Eosinophils 0.0 Absolute Basophils 0.1 Sodium 132.0 L Potassium 3.5 L Chloride 88 L Carbon Dioxide 21 L Anion Gap 23 H BUN 64 H Creatinine 9.93 H Est GFR ( Amer) 7 L Est GFR (Non-Af Amer) 6 L Glucose 117 H Calcium 9.7 Total Bilirubin 0.9 AST 29 ALT 26 Alkaline Phosphatase 87 Total Protein 7.8 Albumin 4.3 Urine Color YELLOW Urine Appearance SLIGHTLY-CLOUDY Urine pH 5.0 Ur Specific [place] 1.021 Urine Protein 30 H Urine Glucose (UA) NEGATIVE Urine Ketones NEGATIVE Urine Blood NEGATIVE Urine Nitrite NEGATIVE Ur Leukocyte Esterase NEGATIVE Urine WBC (Auto) 3 Urine RBC (Auto) 0 Blood Type Antibody Screen 04/09/18 04/09/18 04/10/18 17:29 17:29 06:01 WBC 11.3 H RBC 3.66 L Hgb 11.8 L D Hct 34.0 L MCV 93 MCH 32.2 MCHC 34.6 RDW 13.9 Plt Count 166 Seg Neutrophils % Lymphocytes % Monocytes % Eosinophils % Basophils % Absolute Neutrophils Absolute Lymphocytes Absolute Monocytes Absolute Eosinophils Absolute Basophils Sodium 132.7 L Potassium 3.8 Chloride 91 L Carbon Dioxide 22 Anion Gap 20 H BUN 68 H Creatinine 9.67 H Est GFR ( Amer) 7 L Est GFR (Non-Af Amer) 6 L Glucose 107 Calcium 9.2 Total Bilirubin AST ALT Alkaline Phosphatase Total Protein Albumin Urine Color Urine Appearance Urine pH Ur Specific [place] Urine Protein Urine Glucose (UA) Urine Ketones Urine Blood Urine Nitrite Ur Leukocyte Esterase Urine WBC (Auto) Urine RBC (Auto) Blood Type O NEGATIVE Antibody Screen NEGATIVE 04/10/18 06:01 WBC RBC Hgb Hct MCV MCH MCHC RDW Plt Count Seg Neutrophils % Lymphocytes % Monocytes % Eosinophils % Basophils % Absolute Neutrophils Absolute Lymphocytes Absolute Monocytes Absolute Eosinophils Absolute Basophils Sodium 129.1 L Potassium 3.4 L Chloride 95 L Carbon Dioxide 17 L Anion Gap 17 BUN 75 H Creatinine 9.48 H Est GFR ( Amer) 7 L Est GFR (Non-Af Amer) 6 L Glucose 104 Calcium 8.5 Total Bilirubin AST ALT Alkaline Phosphatase Total Protein Albumin Urine Color Urine Appearance Urine pH Ur Specific [place] Urine Protein Urine Glucose (UA) Urine Ketones Urine Blood Urine Nitrite Ur Leukocyte Esterase Urine WBC (Auto) Urine RBC (Auto) Blood Type Antibody Screen 04/09/18 14:25 Creatine Kinase 180 H Impressions: Abdomen/Pelvis CT 04/09/18 15:48 IMPRESSION: Right lower quadrant/pelvic abscess, either from perforated appendix or diverticulitis. Surgical consultation is recommended. Renal Ultrasound 04/09/18 15:49 IMPRESSION: 1. Normal kidneys. 2. Inflammatory mass in the pelvis as initially seen on CT. Assessment & Plan - Diagnosis (1) Acute renal failure Qualifiers: Acute renal failure type: unspecified Qualified Code(s): N17.9 - Acute kidney failure, unspecified Is this a current diagnosis for this admission?: Yes Plan: Apparently normal kidney functions prior to this episode according to the patient.He presented with an anuric like picture without any noteworthy abdominal distention or severe pain in his upper abdomen and flanks.However since introduction of a White catheter drained approximately 500 cc and he still continues to drain small amounts. CT scan did not show any obstructive features. He also gave a history of possible pneumaturia in his early presentation. Is most likely the patient has diversion of urine from his bladder into the bowels via a fistulous connection. Patient, in my opinion needs to be undergoing expiratory laparotomy after stabilization and possible oral contrasted CT scan. He most likely would need to have urology assist with a general surgeon in the process. I discussed this case with Dr. Jo, the surgicalist and the best recommendation would be to transfer him to a tertiary care hospital especially as we do not have a urologist here.In the meanwhile I would adjust his fluids and monitor his electrolytes. No acute indications exists for renal replacement therapy at the moment. (2) Pelvic abscess Is this a current diagnosis for this admission?: Yes Plan: Most likely ruptured appendix with abscess with fistulous connection with the bladder. Currently on IV Zosyn. Needs further delineation with oral contrasted CT scan at least. Discussed with Dr. Jo, the surgicallist. (3) Pneumaturia Is this a current diagnosis for this admission?: Yes Plan: Highly suggestive of a fistulous connection. (4) Sepsis Qualifiers: Sepsis type: sepsis due to unspecified organism Qualified Code(s): A41.9 - Sepsis, unspecified organism Is this a current diagnosis for this admission?: Yes Plan: As mentioned earlier. Patient on IV Zosyn. (5) Hyponatremia Plan: Patient on Ringer's lactate. We will stop that and convert to saline with potassium additive and monitor. (6) Hypokalemia Plan: Convert Ringer's lactate to saline with potassium as an additive. (7) Hypotension Qualifiers: Hypotension type: unspecified hypotension type Qualified Code(s): I95.9 - Hypotension, unspecified Plan: Patient currently off all his antihypertensives. Likely from sepsis and poor intake. See how the conversion to Ringer lactate will help. Needs to be monitored closely given his intra-abdominal pathology.
[2018-04-10 14:13] VITALS: BP 92/46
--- NOTE | 2018-04-10 14:59 | PDOC TRANSFER SUMMARY ---
General Admission Date/PCP: 04/09/18 17:15 Transfer Date: 04/10/18 Accepting Facility: [facility] Accepting Physician: Dr. Esquivel Resuscitation Status: Full Code - Transfer Diagnosis (1) Acute renal failure Is this a current diagnosis for this admission?: Yes Diagnosis Summary: Suspected to be due to sepsis. He was initially an uric but he is now putting out urine after receiving IV fluids and antibiotics. Creatinine was around 9.9 on admission, down to 9.4 this morning. 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 Patient gives a history of pneumaturia. Currently on Zosyn, awaiting definitive treatment. (3) Sepsis Is this a current diagnosis for this admission?: Yes Diagnosis Summary: Secondary to the above. White blood cell count is come down from 16 to about 11. He was tachycardic initially but he is no longer so. His blood pressure was a little bit low when he was admitted, systolic was in the 90s, but after some antibiotics and fluids his blood pressure has come up to a systolic of the 120s. He has been afebrile for us, reports subjective fever at home but never took his temperature. Blood cultures were obtained on admission but are pending at this time. He has been on Zosyn dosed per his renal function. - Transfer Medications Home Medications: Amlodipine Besylate [Norvasc 10 mg Tablet] 10 mg PO DAILY 04/09/18 Clonidine HCl [Catapres 0.1 mg Tablet] 0.1 mg PO Q12 04/09/18 Losartan/Hydrochlorothiazide [Losartan-Hctz 50-12.5 mg Tab] 1 each PO DAILY 04/09/18 Metoprolol Tartrate [Lopressor 100 mg Tablet] 100 mg PO Q12 04/09/18 Ranitidine HCl 300 mg PO DAILY 04/09/18 Transfer Medications: Current Medications Dextrose (Dextrose Inj 50% Syringe (25 Gm/50 Ml)) 12.5 gm IV PRN PRN; Protocol PRN Reason: FOR BG 50-69 IN ALERT PATIENT Stop: 05/10/18 09:51 Dextrose (Dextrose Inj 50% Syringe (25 Gm/50 Ml)) 25 gm IV PRN PRN; Protocol PRN Reason: See Label Comments Stop: 05/10/18 09:51 Glucagon (Glucagen Inj 1 Mg Vial) 1 mg SUBCUT PRN PRN; Protocol PRN Reason: Evaluate for BG < 70 Stop: 05/10/18 09:51 Glucose (Glutose 40% Gel 15 Gm Tube) 15 gm PO PRN PRN; Protocol PRN Reason: For BG 50-69 in Alert Patient Stop: 05/10/18 09:51 Glucose (Glutose 40% Gel 15 Gm Tube) 30 gm PO PRN PRN; Protocol PRN Reason: FOR BG < 50 IN ALERT PATIENT Stop: 05/10/18 09:51 Heparin Sodium (Porcine) (Heparin Inj 5,000 Units/Ml 1 Ml Syringe) 5,000 unit SUBCUT Q8 HONEY Stop: 05/09/18 21:59 Last Admin: 04/10/18 06:35 Dose: Not Given Documented by: Piperacillin Sod/Tazobactam (Sod 2.25 gm/ Sodium Chloride) 50 mls @ 100 mls/hr IV Q8 [facility] Stop: 04/16/18 21:59 Last Infusion: 04/10/18 08:37 Dose: Infused Documented by: Potassium Chloride/Sodium Chloride (Nacl 0.9% 1000 Ml/Kcl 20 Meq Premix Bag) 1,000 mls @ 75 mls/hr IV CONTINUOUS PRN PRN Reason: THIS MED IS NOT "PRN" Last Admin: 04/10/18 12:25 Dose: 75 mls/hr Documented by: Morphine Sulfate (Morphine 10 Mg/Ml Inj) 2 mg IV Q4HP PRN PRN Reason: FOR PAIN Stop: 04/16/18 17:37 Last Admin: 04/10/18 08:47 Dose: 2 mg Documented by: Ondansetron HCl (Zofran Inj/Pf 4 Mg/2 Ml Sdv) 4 mg IV Q8HP PRN PRN Reason: FOR NAUSEA/VOMITING Stop: 05/09/18 17:25 - Allergies Allergies/Adverse Reactions: No Known Allergies Allergy (Verified 04/09/18 15:14) - Diet/Activity Discharge Diet: Clear Liquids Discharge Activity: Other - Currently on bed rest with bathroom privileges Hospital Course Hospital Course: Per HPI: "CAITIE PICKARD JR is a 47 year old male with a past medical history of hypertension who said he had been feeling bad like he had had an upset stomach for a few days and said early Friday morning he tried to urinate but could not. He said he may or may not have felt like he had some air sputtering out while he had been urinating previous to that. He says he felt like he had run a fever in the days preceding but he did not take his temperature. He said that he would lay down and hope that the burning sensation that he felt like was near his rectum would just go away on his own if he would lay down and rest. He is not had any new medicines or medical tests or procedures. He has been able to ambulate independently. He said he has not urinated now in about 3 or 4 days, nor has he had a bowel movement in that time. He had a CT scan for his abdominal pain, but they could not use contrast because they found his creatinine was greater than 9, which was new for him. The noncontrasted CT showed something that looked like a phlegmon in his lower abdomen his appendix could not be identified. Hospitalist service was consulted for evaluation and further management." He has been placed on Zosyn and was given copious IV fluids. His white blood cell count and heart rate have improved, as has his blood pressure. He is now putting out good amounts of urine, and had about 250 mL's of urine in his White bag this morning. This is definitely an improvement, because for the last 3 or 4 days he had not urinated at all. We have had him on clear liquids in anticipation of some sort of procedure and he is been tolerating those well. Brian evans the radiologist reviewed the images with the surgeon and the hand stripper, and given the patient's history of pneumaturia along with the CT scan findings, it was felt that this patient most likely had an abscess with a colovesicular fistula. General surgery here believe that the patient needed a procedure in conjunction with a urologist, but we do not have a urologist at this facility. [facility] and I spoke with Dr. Esquivel, who has agreed to accept the patient in transfer. The patient was hemodynamically stable at time of this dictation prior to his transfer. Physical Exam Vital Signs: Temp Pulse Resp BP Pulse Ox 98.7 F 99 16 92/46 L 97 04/10/18 12:08 04/10/18 12:08 04/10/18 12:04/10/18 12:04/10/18 12:08 Intake & Output 04/09/18 04/10/18 04/11/18 06:59 06:59 06:59 Intake Total 5150 1050 Output Total 230 Balance 4920 1050 Weight 90.5 kg General appearance: PRESENT: no acute distress, cooperative Respiratory exam: PRESENT: clear to auscultation dorian, symmetrical, unlabored. ABSENT: accessory muscle use, crackles, rhonchi, tachypnea, wheezes Cardiovascular exam: PRESENT: RRR, +S1, +S2 Vascular exam: PRESENT: normal capillary refill GI/Abdominal exam: PRESENT: diminished bowel sounds, soft, tenderness - Primarily in the right lower quadrant and suprapubic regions. ABSENT: distended, guarding, rebound, rigid Extremities exam: ABSENT: clubbing, pedal edema Musculoskeletal exam: PRESENT: ambulatory, normal inspection. ABSENT: deformity Neurological exam: PRESENT: alert, awake, oriented to person, oriented to place, oriented to time, oriented to situation Psychiatric exam: PRESENT: appropriate affect, normal mood Skin exam: PRESENT: dry, warm Results Laboratory Results: 04/10/18 06:01 04/10/18 06:01 04/09/18 04/09/18 04/09/18 14:25 15:09 17:29 WBC RBC Hgb Hct MCV MCH MCHC RDW Plt Count Sodium 132.0 L 132.7 L Potassium 3.5 L 3.8 Chloride 88 L 91 L Carbon Dioxide 21 L 22 Anion Gap 23 H 20 H BUN 64 H 68 H Creatinine 9.93 H 9.67 H Est GFR ( Amer) 7 L 7 L Est GFR (Non-Af Amer) 6 L 6 L Glucose 117 H 107 Calcium 9.7 9.2 Total Bilirubin 0.9 AST 29 ALT 26 Alkaline Phosphatase 87 Total Protein 7.8 Albumin 4.3 Urine Color YELLOW Urine Appearance SLIGHTLY-CLOUDY Urine pH 5.0 Ur Specific Brandon 1.021 Urine Protein 30 H Urine Glucose (UA) NEGATIVE Urine Ketones NEGATIVE Urine Blood NEGATIVE Urine Nitrite NEGATIVE Ur Leukocyte Esterase NEGATIVE Urine WBC (Auto) 3 Urine RBC (Auto) 0 Blood Type Antibody Screen 04/09/18 04/10/18 04/10/18 17:29 06:01 06:01 WBC 11.3 H RBC 3.66 L Hgb 11.8 L D Hct 34.0 L MCV 93 MCH 32.2 MCHC 34.6 RDW 13.9 Plt Count 166 Sodium 129.1 L Potassium 3.4 L Chloride 95 L Carbon Dioxide 17 L Anion Gap 17 BUN 75 H Creatinine 9.48 H Est GFR ( Amer) 7 L Est GFR (Non-Af Amer) 6 L Glucose 104 Calcium 8.5 Total Bilirubin AST ALT Alkaline Phosphatase Total Protein Albumin Urine Color Urine Appearance Urine pH Ur Specific Brandon Urine Protein Urine Glucose (UA) Urine Ketones Urine Blood Urine Nitrite Ur Leukocyte Esterase Urine WBC (Auto) Urine RBC (Auto) Blood Type O NEGATIVE Antibody Screen NEGATIVE 04/09/18 14:25 Creatine Kinase 180 H Impressions: Abdomen/Pelvis CT 04/09/18 15:48 IMPRESSION: Right lower quadrant/pelvic abscess, either from perforated appendix or diverticulitis. Surgical consultation is recommended. Renal Ultrasound 04/09/18 15:49 IMPRESSION: 1. Normal kidneys. 2. Inflammatory mass in the pelvis as initially seen on CT.
== END 2018-04-10 15:15 | disposition short-term general hospital (02) | DRG 871 ==
LOC: ER 13:48 → EH 17:15 → 4S 19:31
PROVIDERS: ADMIT Internal Medicine; ATTEND Internal Medicine
DX: A41.9 Sepsis, unspecified organism (principal); K65.1 Peritoneal abscess; N17.9 Acute kidney failure, unspecified; N32.1 Vesicointestinal fistula; E87.1 Hypo-osmolality and hyponatremia; I10 Essential (primary) hypertension; E87.6 Hypokalemia; R33.9 Retention of urine, unspecified; E86.0 Dehydration
CPT/HCPCS: 36415; 51702; 74176; 76770; 80048; 80053; 80307; 81001; 82550; 85025; 85027; 85610; 85730; 86850; 86900; 86901; 87040; 96361; 96365; 99291; J2270; J2543; J3480; J7030; J7120

== ENCOUNTER 2018-04-28 18:14 | Emergency (ER) | payer BC ==
[2018-04-28] MEDS ORDERED: ASPIRIN 81 MG TABLET, CHEWABLE PO ONE (18:26)
[2018-04-28 18:33] LABS: ABSOLUTE EOSINOPHILS # (AUTO) 0.2 10^3/uL (0.0-0.6); ABSOLUTE LYMPHOCYTES (AUTO) 2.3 10^3/uL (0.5-4.7); ABSOLUTE MONOCYTES (AUTO) 0.5 10^3/uL (0.1-1.4); ABSOLUTE NEUT (AUTO) 2.2 10^3/uL (1.7-8.2); BASOPHILS % (AUTO) 0.4 % (0-2); EOSINOPHILS % (AUTO) 4.7 % (0-6); HEMOGLOBIN 11.7 g/dL (13.5-17.0); LYMPHOCYTES % (AUTO) 44.2 % (13-45); MEAN CORPUSCULAR HEMOGLOBIN 31.6 pg (27.0-33.4); MEAN CORPUSCULAR HGB CONC 34.4 g/dL (32.0-36.0); MEAN CORPUSCULAR VOLUME 92 fl (80-97); MONOCYTES % (AUTO) 9.7 % (3-13); PLATELET COUNT 265 10^3/uL (150-450); RED BLOOD COUNT 3.71 10^6/uL (4.35-5.55); RED CELL DISTRIBUTION WIDTH 12.8 % (11.5-14.0); TOTAL CELLS COUNTED % (AUTO) 100 %; WHITE BLOOD COUNT 5.2 10^3/uL (4.0-10.5)
--- NOTE | 2018-04-28 18:45 | RADIOLOGY REPORT (SQ) ---
EXAM DESCRIPTION: CHEST SINGLE VIEW COMPLETED DATE/TIME: 04/28/2018 6:38 pm REASON FOR STUDY: cp COMPARISON: None. EXAM PARAMETERS: NUMBER OF VIEWS: One view. TECHNIQUE: Single frontal radiographic view of the chest acquired. RADIATION DOSE: NA LIMITATIONS: None. FINDINGS: LUNGS AND PLEURA: No opacities, masses or pneumothorax. No pleural effusion. MEDIASTINUM AND HILAR STRUCTURES: No masses. Contour normal. HEART AND VASCULAR STRUCTURES: Heart normal in size. Normal vasculature. BONES: No acute findings. HARDWARE: None in the chest. OTHER: No other significant finding. IMPRESSION: NO ACUTE RADIOGRAPHIC FINDING IN THE CHEST. TECHNICAL DOCUMENTATION: JOB ID: [id number] [employer]- All Rights Reserved Reading location - IP/workstation name: [email or web address]
[2018-04-28 19:02] LABS: ALANINE AMINOTRANSFERASE 36 U/L (21-72); ALBUMIN 4.8 g/dL (3.5-5.0); ALKALINE PHOSPHATASE 80 U/L (38-126); ANION GAP 13 (5-19); ASPARTATE AMINO TRANSFERASE 26 U/L (17-59); BILIRUBIN,DIRECT 0.4 mg/dL (0.0-0.4); BILIRUBIN,TOTAL 1.1 mg/dL (0.2-1.3); BLOOD UREA NITROGEN 10 mg/dL (7-20); CALCIUM 9.9 mg/dL (8.4-10.2); CARBON DIOXIDE 25 mmol/L (22-30); CHLORIDE 100 mmol/L (98-107); CREATINE KINASE 61 U/L (55-170); GLUCOSE 105 mg/dL (75-110); POTASSIUM 4.1 mmol/L (3.6-5.0); SODIUM 137.6 mmol/L (137-145); TOTAL PROTEIN 8.5 g/dL (6.3-8.2)
[2018-04-28 19:22] LABS: CREATINE KINASE MB < 0.22 ng/mL (<4.55); TROPONIN I < 0.012 ng/mL
--- NOTE | 2018-04-28 20:08 | RADIOLOGY REPORT (SQ) ---
EXAM DESCRIPTION: XR ABDOMEN 1 VIEW (KUB) COMPLETED DATE/TME: 04/28/2018 19:20 CLINICAL HISTORY: 47 years, Male, constipation Findings: Midline skin erika are noted. No free air. No significant dilated loops of bowel. No abnormal calcifications. Right lower quadrant surgical anastomosis is noted. IMPRESSION: No evidence for bowel obstruction.
--- NOTE | 2018-04-28 20:39 | ER Document Report ---
ED General - General Chief Complaint: Palpitations Stated Complaint: PALPITATIONS Time Seen by Provider: 04/28/18 18:51 TRAVEL OUTSIDE OF THE [place] IN LAST 30 DAYS: No - HPI Patient complains to provider of: Palpitations Notes: Patient coming in complaining of palpitations and some abdominal pain while watching he has been patient states he was watching partner eruption when he felt palpitations states his heart rate was around 100 when he counted therefore came to the ER for further evaluation. Patient was recently hospitalized had a abdominal abscess transferred to [facility] he had his appendix and some of his bowel removed. Patient otherwise states that he has been feeling fine has been taking pain medications states slight problems with constipation. Haley ent states he has not had a bowel movement approximately 24-48 hours. Patient otherwise denies any shortness of breath denies any palpitations upon evaluation denies any fevers chills nausea vomiting diarrhea. Patient resting comfortably - Related Data Allergies/Adverse Reactions: No Known Allergies Allergy (Verified 04/09/18 15:14) Past Medical History - Social History Smoking Status: Never Smoker Chew tobacco use (# tins/day): No Frequency of alcohol use: None Drug Abuse: None Family History: Reviewed & Not Pertinent Patient has suicidal ideation: No Patient has homicidal ideation: No - Past Medical History Cardiac Medical History: Reports: Hx Hypertension Renal/ Medical History: Denies: Hx Peritoneal Dialysis Psychiatric Medical History: Denies: Hx Depression Past Surgical History: Reports: Hx Abdominal Surgery, Hx Appendectomy Review of Systems - Review of Systems Constitutional: No symptoms reported EENT: No symptoms reported Cardiovascular: Palpitations Respiratory: No symptoms reported Gastrointestinal: Abdominal pain Genitourinary: No symptoms reported Male Genitourinary: No symptoms reported Musculoskeletal: No symptoms reported Skin: No symptoms reported Hematologic/Lymphatic: No symptoms reported Neurological/Psychological: No symptoms reported -: Yes All other systems reviewed and negative Physical Exam - Vital signs Vitals: Pulse Ox 100 04/28/18 18:42 Interpretation: Normal - General General appearance: Appears well, Alert - HEENT Head: Normocephalic, Atraumatic Eyes: Normal Pupils: PERRL - Respiratory Respiratory status: No respiratory distress Chest status: Nontender Breath sounds: Normal Chest palpation: Normal - Cardiovascular Rhythm: Regular Heart sounds: Normal auscultation Murmur: No - Abdominal Inspection: Normal Distension: No distension Bowel sounds: Normal Tenderness: Nontender Organomegaly: No organomegaly - Back Back: Normal, Nontender - Extremities General upper extremity: Normal inspection, Nontender, Normal color, Normal ROM, Normal temperature General lower extremity: Normal inspection, Nontender, Normal color, Normal ROM, Normal temperature, Normal weight bearing. No: Garrett's sign - Neurological Neuro grossly intact: Yes Cognition: Normal Orientation: AAOx4 Reddick Coma Scale Eye Opening: Spontaneous Reddick Coma Scale Verbal: Oriented Kami Coma Scale Motor: Obeys Commands Kami Coma Scale Total: 15 Speech: Normal Motor strength normal: LUE, RUE, LLE, RLE Sensory: Normal - Psychological Associated symptoms: Normal affect, Normal mood - Skin Skin Temperature: Warm Skin Moisture: Dry Skin Color: Normal Course - Re-evaluation Re-evalutation: 04/29/18 02:44 Patient laboratory studies not reveal any critical pathology. Patient's creatinine has improved. Patient's acute abdominal series shows possibly some mild constipation. Unclear etiology for the patient's symptoms patient has no tachycardia no hypoxia has been stable while here in the ER doubt PE cardiac disease or other serious pathology. Patient recommended to be discharged continue to drink plenty of fluids follow-up with primary care physician patient states understanding and agrees with this plan. - Vital Signs Vital signs: Temp Pulse Resp BP Pulse Ox 16 145/70 H 99 04/28/18 20:45 04/28/18 20:45 04/28/18 20:45 - Laboratory Result Diagrams: 04/28/18 18:20 04/28/18 18:20 Laboratory results interpreted by me: 04/28/18 04/28/18 18:20 18:20 RBC 3.71 L Hgb 11.7 L Hct 34.0 L Seg Neutrophils % 41.0 L Creatinine 1.37 H Est GFR (Non-Af Amer) 56 L Total Protein 8.5 H Discharge - Discharge Clinical Impression: Palpitations, Abdominal discomfort Disposition: HOME, SELF-CARE Instructions: Abdominal Pain ([facility]), Palpitations (Irregular or Rapid Heartrate) ([facility]) Additional Instructions: Your evaluation does not show any signs of electrolyte abnormality or reason for underlying palpitations your chest x-ray is also negative EKG is normal. Picture of your intestines does show some signs of mild constipation more likely due to the pain medication is been prescribed will recommend Senokot-S to help out with your constipation or an [id number] stool softener. Please follow-up with your primary care physician return to ER symptoms worsen. Prescriptions: Sennosides/Docusate Sodium [Senna-S Tablet] 1 each PO BID #30 tablet Referrals: ILEANA KAYE PA-C [Primary Care Provider] - Follow up in 3-5 days
[2018-04-28 20:46] VITALS: BP 145/70
--- NOTE | 2018-04-29 17:55 | EKG REPORT ---
SEVERITY:- NORMAL ECG - SINUS RHYTHM : Confirmed by: Maverick Terrell 29-Apr-2018 17:54:45
== END 2018-04-28 21:02 | disposition home or self-care (01) ==
LOC: ER 18:14
DX: R00.2 Palpitations (principal); R10.9 Unspecified abdominal pain; I10 Essential (primary) hypertension; Z90.49 Acquired absence of other specified parts of digestive tract
CPT/HCPCS: 36415; 71045; 74018; 80053; 82550; 82553; 84484; 85025; 93005; 93010; 99285

== ENCOUNTER → 2018-06-17 | Outpatient (CLI) | payer BC ==
--- NOTE | 2018-06-17 10:25 | RADIOLOGY REPORT (SQ) ---
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 Contrasted imaging performed using helical scanning technique with dynamic intravenous cont rast injection. Images reviewed with lung, soft tissue, and bone windows. Reconstructed coronal and s agittal MPR images reviewed. Delayed images for evaluation of the urinary system also acquired and ev aluated. All images stored on PACS. All CT scanners at this facility use dose modulation, iterative reconstruction, and/or weight based d osing when appropriate to reduce radiation dose to as low as reasonably achievable (ALARA). [facility]: Dose Right [facility]: CareDose [facility]: Dose Right [facility]: Teradose 4D [facility]: WEPOWER Eco CONTRAST TYPE AND DOSE: contrast/concentration: Isovue 350.00 mg/ml; Total Contrast Delivered: 57.0 ml; Total Saline Delivered: 80.0 ml RENAL FUNCTION: Creatinine 1.2 RADIATION DOSE: CT Rad equipment meets quality standard of care and radiation dose reduction techniq ues were employed. CTDIvol: 7.7 - 19.7 mGy. DLP: 1230 mGy-cm.. LIMITATIONS: None. FINDINGS: NONCONTRASTED IMAGING: Few peripheral rim calcifications are present along a right upper p ole renal cortical cyst. POSTCONTRASTED IMAGING: LOWER CHEST: No significant findings. No nodules or infiltrates. LIVER: Normal size. No masses. No dilated ducts. SPLEEN: Normal size. No focal lesions. PANCREAS: No masses. No significant calcifications. No adjacent inflammation or peripancreatic fluid collections. Pancreatic duct not dilated. GALLBLADDER: No identified stones by CT criteria. No inflammatory changes to suggest cholecystitis. ADRENAL GLANDS: No significant masses or asymmetry. RIGHT KIDNEY AND URETER: No solid masses. 3.5 cm cyst right upper pole kidney without significant co ntrast enhancement. There is minimal peripheral rim calcification. This correlates with ultrasound 04/09/2018. This is a benign finding. No intrarenal collecting system stones. No hydronephrosis or hydroureter. LEFT KIDNEY AND URETER: No solid masses. No significant calcifications. No hydronephrosis or hydr oureter. AORTA AND VESSELS: No aneurysm. No dissection. Renal arteries, SMA, celiac without stenosis. RETROPERITONEUM: No retroperitoneal adenopathy, hemorrhage or masses. BOWEL AND PERITONEAL CAVITY: No masses or inflammatory changes. No free fluid or peritoneal masses. APPENDIX: Not in the field of view. Surgical erika along the right colon ABDOMINAL WALL: No masses. No hernias. BONES: No significant or acute findings. OTHER: No other significant finding. IMPRESSION: Benign-appearing 3.5 cm cyst right upper pole kidney with minimal rim calcification TECHNICAL DOCUMENTATION: JOB ID: [id number] Quality ID # [id number]: Final reports with documentation of one or more dose reduction techniques (e.g., Au tomated exposure control, adjustment of the mA and/or kV according to patient size, use of iterative reconstruction technique) 2010 [employer]- All Rights Reserved Reading location - IP/workstation name: [email or web address]
== END ==
LOC: RAD 08:50
PROVIDERS: ATTEND Physician Assistant
DX: D41.01 Neoplasm of uncertain behavior of right kidney (principal); R93.421 Abnormal radiologic findings on diagnostic imaging of right kidney
CPT/HCPCS: 74170; 82565